=== PATIENT | female | born 1975 | race Caucasian/White ===

== ENCOUNTER 2016-06-03 14:04 | Emergency (ER) | payer MEDICAID, OTHER ==
[~2016-06-03] VITALS: Ht 157.5 cm; Wt 124.8 kg
[2016-06-03 14:06] VITALS: BP 152/101
== END 2016-06-03 15:45 | disposition home or self-care (01) ==
LOC: ED 15:39
DX: S16.1XXA Strain of muscle, fascia and tendon at neck level, initial encounter (principal); M54.42 Lumbago with sciatica, left side; X58.XXXA Exposure to other specified factors, initial encounter; Y93.89 Activity, other specified; Y92.89 Other specified places as the place of occurrence of the external cause; Y99.8 Other external cause status
CPT/HCPCS: 72050; 72110

== ENCOUNTER 2017-01-26 16:14 | Day surgery (SDC) | payer MEDICAID, OTHER ==
[~2017-01-26] VITALS: Ht 154.9 cm; Wt 102.0 kg
[2017-01-26] MEDS ORDERED: SODIUM CHLORIDE FLUSH 10ML SYR IVF ONE (17:00)
[2017-01-26] MEDS ORDERED: FAMOTIDINE 20 MG/2 ML IVP ONE (17:00)
[2017-01-26] MEDS ORDERED: SODIUM CHLORIDE 0.9% 1,000ML IVBOLUS ONE (17:00)
[2017-01-26] MEDS ORDERED: ONDANSETRON 2MG/ML, 2ML IVPush ONE (17:00)
[2017-01-26] MEDS ORDERED: ONDANSETRON 2MG/ML, 2ML ONE ×2 (17:01→22:12)
[2017-01-26] MEDS ORDERED: FAMOTIDINE 20 MG/2 ML ONE (17:01)
[2017-01-26 17:31] LABS: HEMATOCRIT 43.5 % (34.6-47.8); HEMOGLOBIN 14.3 g/dL (11.7-16.4); WHITE BLOOD COUNT 9.3 x10^3/uL (3.4-10)
[2017-01-26 17:43] LABS: ASPARTATE AMINO TRANSFERASE 21 U/L (15-37); BLOOD UREA NITROGEN 13 mg/dL (7-18)
[2017-01-26 17:55] LABS: IS PT STATUS REG ER OR PRE ER? YES
[2017-01-26] MEDS ORDERED: IRON15TA3 PO (18:12)
[2017-01-26] MEDS ORDERED: CYCL5TAB PO (18:12)
[2017-01-26] MEDS ORDERED: CHOL100011 PO (18:12)
[2017-01-26] MEDS ORDERED: OMNIPAQUE 350 MG/ML, 100ML BOTTLE ONE (19:30)
[2017-01-26] MEDS ORDERED: SODIUM CHLORIDE 0.9% 1,000 ML IV ONE (21:29)
[2017-01-26] MEDS ORDERED: SODIUM CHLORIDE FLUSH 10ML SYR IVF PRN (21:30)
[2017-01-26] MEDS ORDERED: HYDROmorphone 1 MG/ML, 1ML IVPush PRN (21:30)
[2017-01-26] MEDS ORDERED: CEFOTETAN PMX 1GM/50ML 50 ML IV ONE (21:30)
[2017-01-26] MEDS ORDERED: ONDANSETRON 2MG/ML, 2ML IVPush PRN ×3 (21:30→23:00)
[2017-01-26] MEDS ORDERED: HYDROmorphone 1 MG/ML, 1ML ONE (22:02)
[2017-01-26] MEDS ORDERED: EPINEPHRINE 1 MG/ML, 1ML ONE (22:03)
[2017-01-26] MEDS ORDERED: BUPIVACAINE/PF 0.5% ONE (22:03)
[2017-01-26] MEDS ORDERED: FENTANYL PF 250 MCG/5ML ONE (22:09)
[2017-01-26] MEDS ORDERED: LIDOCAINE GEL 2%, 5ML ONE (22:10)
[2017-01-26] MEDS ORDERED: PROPOFOL 10 MG/ML, 20ML ONE (22:12)
[2017-01-26] MEDS ORDERED: CEFOTETAN PMX 2GM/50ML 50 ML ONE (22:12)
[2017-01-26] MEDS ORDERED: DEXAMETHASONE 4 MG/ML, 1ML ONE (22:12)
[2017-01-26] MEDS ORDERED: SUCCINYLCHOLINE 20 MG/ML, 10ML ONE (22:12)
[2017-01-26] MEDS ORDERED: GLYCOPYRROLATE 0.2MG/1ML, 5ML ONE (22:12)
[2017-01-26] MEDS ORDERED: LIDOCAINE-MPF 2% ,5ML ONE (22:12)
[2017-01-26] MEDS ORDERED: NEOSTIGMINE 1 MG/ML, 10ML ONE (22:12)
[2017-01-26] MEDS ORDERED: CEFAZOLIN 1,000 MG ONE (22:12)
[2017-01-26] MEDS ORDERED: ROCURONIUM 10 MG/ML,10ML ONE (22:12)
[2017-01-26] MEDS ORDERED: KETOROLAC 30 MG/1 ML ONE (22:31)
[2017-01-26] MEDS ORDERED: BUPIVACAINE/PF 0.5% INFIL ONE (22:32)
[2017-01-26] MEDS ORDERED: EPINEPHRINE 1 MG/ML, 1ML INFIL ONE (22:32)
[2017-01-26] MEDS ORDERED: LABETALOL 5MG/ML, 20ML ONE (22:32)
[2017-01-26] MEDS ORDERED: ACETAMINOPHEN 650 MG/20.3 ML UDC ONE (22:52)
[2017-01-26] MEDS ORDERED: OXYcodone 5 MG/5 ML ORAL.SOL UDC ONE (22:52)
[2017-01-26] MEDS ORDERED: FENTANYL PF 100 MCG/2ML ONE (22:52)
[2017-01-26] MEDS: hydrALAzine 20 MG/ML, 1ML IV PRN ×2 (22:55→23:23)
[2017-01-26] MEDS ORDERED: hydrALAzine 20 MG/ML, 1ML ONE (22:56)
[2017-01-26] MEDS ORDERED: PROMETHAZINE 25 MG/ML, 1ML IV PRN (23:00)
[2017-01-26] MEDS ORDERED: HYDROmorphone 2 MG/ML, 1ML IVPush PRN (23:00)
[2017-01-26] MEDS ORDERED: LORazepam 2 MG/ML, 1ML IVPush PRN (23:00)
[2017-01-26] MEDS ORDERED: ACETAMINOPHEN 325 MG TABLET PO PRN (23:00)
[2017-01-26] MEDS ORDERED: ALBUTEROL/IPRATROPIUM 2.5MG/0.5MG, 3 ML NPPB PRN (23:00)
[2017-01-26] MEDS ORDERED: DIAZEPAM 5 MG/ML, 2ML IVPush PRN (23:00)
[2017-01-26] MEDS ORDERED: MIDAZOLAM 1 MG/ML, 5ML IV PRN (23:00)
[2017-01-26] MEDS ORDERED: DIPHENHYDRAMINE 50 MG/ML, 1ML IVPush PRN (23:00)
[2017-01-26] MEDS ORDERED: OXYcodone 5 MG/5 ML ORAL.SOL UDC PO PRN ×2 (23:00)
[2017-01-26] MEDS ORDERED: HYDROmorphone 1 MG/ML, 1ML IV PRN (23:00)
[2017-01-26] MEDS ORDERED: MEPERIDINE/PF 25MG/0.5ML IVPush PRN (23:00)
[2017-01-26] MEDS: LABETALOL 5MG/ML, 20ML IV PRN ×2 (23:06→23:27)
[2017-01-26] MEDS: FENTANYL PF 100 MCG/2ML IV PRN ×2 (23:13→23:17)
[2017-01-27] VITALS: BP 150/93
[2017-01-27] MEDS ORDERED: OXYC10TA6 PO (00:53)
== END 2017-01-27 01:30 | disposition home or self-care (01) ==
LOC: ED 19:46 → EDIP 21:56 → UNDOADMIN 21:56 → SDC 22:45 → 4NOR 23:51 → EDIP 23:51 → SDC 01-27 01:30 → UNDODISIN 01-27 01:30
PROVIDERS: ATTEND Surgery
DX: K80.10 Calculus of gallbladder with chronic cholecystitis without obstruction (principal); I10 Essential (primary) hypertension; E66.01 Morbid (severe) obesity due to excess calories; Z68.41 Body mass index [BMI] 40.0-44.9, adult; Z88.6 Allergy status to analgesic agent; Z88.8 Allergy status to other drugs, medicaments and biological substances; Z90.3 Acquired absence of stomach [part of]
CPT/HCPCS: 36415; 47562; 71010; 74177; 76700; 80053; 81001; 83690; 84484; 84703; 85025; 87077; 87086; 87186; 88304; 93005; 96361; 96374; 96375; 99285; J0171; J0330; J0360; J1100; J1885; J2405; J2704; J2710; J3010; J3490; J7030; Q9967; S0074; J0690; S0028

== ENCOUNTER 2020-03-01 10:23 | Emergency (ER) | payer MEDICAID, OTHER ==
[~2020-03-01] VITALS: Ht 154.9 cm; Wt 106.2 kg
[~2020-03-01 10:23] MED LIST: CHOL100011 PO; CYCL5TAB PO; IRON15TA3 PO; OXYC10TA6 PO
--- NOTE | 2020-03-01 10:53 | NUR ---
patient is a 44f complaining of n/v/d x 2 weeks and no taste or smell x 5 days. previous negative covid test. current test on 02/27/19 still pending. provider at bedside. patient in no acute distress resting comfortably. warm blankets provided. continuous spo2, and cycling vitals. call light within reach. no additional needs at this time.
[2020-03-01] MEDS ORDERED: SODIUM CHLORIDE 0.9% 1,000ML IVBOLUS ONE (11:00)
[2020-03-01 11:52] LABS: BASOPHILS % (AUTO) 1 % (0-1); EOSINOPHILS % (AUTO) 0 % (1-7); LYMPHOCYTES % (AUTO) 18 % (22-44); MEAN CORPUSCULAR HEMOGLOBIN 24.4 pg (27.0-34.8); MEAN CORPUSCULAR HGB CONC 32.8 g/dL (32.4-35.8); MEAN PLATELET VOLUME 7.8 fL (7.4-10.4); MONOCYTES % (AUTO) 5 % (2-9); NEUTROPHILS % (AUTO) 76 % (42-75); PLATELET COUNT 308 x10^3/uL (130-400); RED BLOOD COUNT 5.13 x10^6/uL (3.82-5.3); RED CELL DISTRIBUTION WIDTH 17.3 % (9.6-15.2)
[2020-03-01 11:58] LABS: MICROSCOPIC INDICATED
[2020-03-01 12:07] LABS: MD NO
[2020-03-01 12:12] LABS: ALANINE AMINOTRANSFERASE 23 U/L (12-78); ALBUMIN 3.7 g/dL (3.4-5.0); ANION GAP 7 mmol/L (5-15); CALCIUM 8.8 mg/dL (8.5-10.1); CHLORIDE 109 mmol/L (98-107); CREATININE 0.74 mg/dL (0.55-1.02)
[2020-03-01 12:14] LABS: ALKALINE PHOSPHATASE 78 U/L (45-117); BILIRUBIN,TOTAL 0.4 mg/dL (0.2-1.0)
[2020-03-01] MEDS ORDERED: ONDANSETRON ODT 4 MG ONE (12:54)
[2020-03-01] MEDS ORDERED: LOPERAMIDE 2 MG CAPSULE PO ONE (13:00)
[2020-03-01] MEDS ORDERED: ONDANSETRON ODT 4 MG PO ONE (13:00)
[2020-03-01] MEDS ORDERED: LOPERAMIDE 2 MG CAPSULE ONE ×2 (13:00→13:03)
[2020-03-01 13:35] VITALS: BP 142/95
--- NOTE | 2020-03-01 13:36 | NUR ---
Patient/Caregiver given discharge instructions and they have confirmed that they understand the instructions. Patient ambulatory with steady gait.
== END 2020-03-01 13:37 | disposition home or self-care (01) ==
LOC: ED 12:26
DX: U07.1 COVID-19 (principal); J18.1 Lobar pneumonia, unspecified organism; R11.2 Nausea with vomiting, unspecified; R19.7 Diarrhea, unspecified; R10.9 Unspecified abdominal pain; R05 Cough; I10 Essential (primary) hypertension; Z88.9 Allergy status to unspecified drugs, medicaments and biological substances
CPT/HCPCS: 71045; 80053; 81001; 85025; 87086; 87635; 99284; Q0162